=== PATIENT | male | born 2000 | race Caucasian/White ===

== ENCOUNTER 2019-08-26 14:35 | Emergency (ER) | payer OTHER ==
--- NOTE | 2019-08-26 16:10 | ED ---
HPI Febrile Illness - HPI Summary HPI Summary: 18 y/o male presented to [facility] for illness since yesterday. Pt was diagnosed with PNA over a month ago at [facility] diagnosed by auscultation. It resolved and the pt was diagnosed with PNA again 2.5 weeks ago at [facility], diagnosed by auscultation, with a CXR that did not show PNA. He finished his abx 5 days ago and yesterday began feeling worse again. Pt is fatigued and has an intermittent fever, cough, diarrhea. He denies rash, sore throat, and rhinorrhea. He took medicine this morning for his sx. Pt has not been in contact with anyone ill recently. Pt notes hx of heart murmur and a bicuspic aortic valve. He drinks alcohol occasionally. Medications reviewed. Allergies noted. - History of Current Complaint Chief Complaint: EDGeneral Time Seen by Provider: 08/26/19 15:59 Hx Obtained From: Patient, Family/Banquet Chef Onset/Duration: Started Weeks Ago, Still Present Timing: Lasting Days Current Severity: None Pain Intensity: 0 Pain Scale Used: 0-10 Numeric Aggravating Factors: Nothing Alleviating Factors: Nothing Associated Signs and Symptoms: Cough, Diarrhea - Allergy/Home Medications Allergies/Adverse Reactions: Allergies Allergy/AdvReac Type Severity Reaction Status Date / Time No Known Allergies Allergy Verified 08/26/19 17:10 Home Medications: Home Medications NK [No Home Medications Reported] 08/26/19 [History Confirmed 08/26/19] PMH/Surg Hx/FS Hx/Imm Hx Sensory History: Denies: Hx Legally Blind, Hx Deafness Opthamlomology History: Denies: Hx Legally Blind EENT History: Denies: Hx Deafness Infectious Disease History: No Infectious Disease History: Denies: Traveled Outside the [place] in Last 30 Days - Family History Known Family History: Negative: Cardiac Disease, Hypertension, Diabetes - Social History Occupation: Student Lives: Dormitory/Roommates Alcohol Use: Occasionally Hx Substance Use: No Hx Tobacco Use: No Review of Systems Positive: Fever Negative: Sore Throat, Nasal Discharge Positive: Cough Positive: Diarrhea Negative: Rash All Other Systems Reviewed And Are Negative: Yes Physical Exam - Summary Physical Exam Summary: Constitutional: Well-developed, Well-nourished, Alert. (-) Distressed Skin: Warm, Dry HENT: Normocephalic; Atraumatic Eyes: Conjunctiva normal Neck: Musculoskeletal ROM normal neck. (-) JVD, (-) Stridor, (-) Tracheal deviation Cardio: Rhythm regular, rate normal, Heart sounds normal; Intact distal pulses; Radial pulses are 2+ and symmetric. (-) Murmur Pulmonary/Chest wall: Effort normal. (-) Respiratory distress, (-) Wheezes, (-) Rales Abd: Soft, (-) tenderness, (-) Distension, (-) Guarding, (-) Rebound Musculoskeletal: (-) Edema, Good pulses bilaterally in radius, No calf tenderness, No venous cords, No pain with dorsiflexion of foot. Lymph: (-) Cervical adenopathy Neuro: Alert, Oriented x3 Psych: Mood and affect Normal Triage Information Reviewed: Yes Vital Signs On Initial Exam: Initial Vitals Temp Pulse Resp BP Pulse Ox 98.9 F 96 16 141/89 99 08/26/19 14:37 08/26/19 14:37 08/26/19 14:37 08/26/19 14:37 08/26/19 14:37 Vital Signs Reviewed: Yes Procedures - Sedation Patient Received Moderate/Deep Sedation with Procedure: No Diagnostics - Vital Signs Vital Signs Temp Pulse Resp BP Pulse Ox 08/26/19 14:37 98.9 F 96 16 141/89 99 - Laboratory Lab Statement: Any lab studies that have been ordered have been reviewed, and results considered in the medical decision making process. - Radiology cxr Radiology Interpretation Completed By: Radiologist Summary of Radiographic Findings: IMPRESSION: No radiographic evidence of acute cardiopulmonary disease. This report was reviewed by the ED physician Course/Dx - Course Course Of Treatment: Patient is here with fever and fatigue for the past day. Patient has been treated with antibiotics for presumed pneumonia twice over the past month although has never had chest x-ray confirmed pneumonia. Patient's is overall well-appearing with a benign exam. Patient had negative rapid influenza swab and a negative chest x-ray. Patient is going home to follow-up with his primary care doctor this week and was given very strict precautions. - Diagnoses Provider Diagnoses: Fever, Fatigue Discharge ED - Sign-Out/Discharge Documenting (check all that apply): Patient Departure - dc - Discharge Plan Condition: Stable Disposition: HOME Patient Education Materials: Fatigue (ED) Forms: *School Release Referrals: [facility] [Primary Care Provider] - Additional Instructions: PLEASE RETURN TO EMERGENCY DEPARTMENT FOR ANY TROUBLE BREATHING, SEVERE ABDOMINAL PAIN, OR OTHER CONCERNING SYMPTOMS. Take Tylenol and Motrin. Please follow up with your primary care physician. Please make all follow-ups in 1-3 days unless I advise you otherwise. - Billing Disposition and Condition Condition: STABLE Disposition: Home - Attestation Statements Document Initiated by Charline: Yes Documenting Scribe: Carlos Solorzano Provider For Whom Charline is Documenting (Include Credential): Aureliano Jeronimo MD Scribe Attestation: Carlos Tolentino, scribed for Aureliano Jeronimo MD on 08/26/19 at 1830. Scribe Documentation Reviewed: Yes Provider Attestation: The documentation as recorded by the Carlos davalos accurately reflects the service I personally performed and the decisions made by me, Aureliano Jeronimo MD Status of Scribe Document: Viewed
[2019-08-26] MEDS ORDERED: Acetaminophen TAB* 325 MG PO ONE (16:13)
[2019-08-26] MEDS ORDERED: Ibuprofen TAB* 600 MG PO ONE (16:13)
[2019-08-26 17:14] LABS: Influenza A Molecular Negative (Negative); Influenza B Molecular Negative (Negative)
[2019-08-26 18:00] VITALS: BP 123/73
== END 2019-08-26 17:58 | disposition home or self-care (01) ==
LOC: ED 14:35
DX: R50.9 Fever, unspecified (principal); R53.83 Other fatigue; R05 Cough; R19.7 Diarrhea, unspecified
CPT/HCPCS: 71046; 99282; A9270-GY